=== PATIENT | female | born 1985 | race Caucasian/White ===

== ENCOUNTER 2017-08-21 13:19 | Emergency (ER) | payer OTHER, BC ==
[~2017-08-21] VITALS: Ht 162.6 cm; Wt 69.8 kg
[~2017-08-21 13:19] MED LIST: CIPR500 PO; CYCL10 PO; DOCU100 PO; FLUT44OIA; Flomax0.4 MG PO; Flonase 0.05% N16 GM; GABA100 PO; HYDACE5 PO; HYDMOR2; IBUP400 PO; IBUP800; IBUP800 PO; KETO10 PO; MEDR10 PO; MULVITMIND PO; Macrodantin50 MG PO; NAPR500 PO; ONDA8ODT MM; OXYB5ER PO; PANT20 PO; PENVK500 PO; PROGESTERONE PO; Percocet 5-3251 EACH PO; Prilosec Otc20 MG PO; RXONDA4ODT MM; SENN187 PO; TAMS.4ER PO; Zofran Odt4 MG SL
== END 2017-08-21 14:49 | disposition home or self-care (01) ==
LOC: ER 13:19
DX: M25.511 Pain in right shoulder (principal); K21.9 Gastro-esophageal reflux disease without esophagitis; Z91.040 Latex allergy status; Z88.8 Allergy status to other drugs, medicaments and biological substances; Z88.7 Allergy status to serum and vaccine; Z79.899 Other long term (current) drug therapy
CPT/HCPCS: 73050; 99283

== ENCOUNTER 2017-09-12 16:42 | Emergency (ER) | payer BC ==
[~2017-09-12] VITALS: Ht 162.6 cm; Wt 70.3 kg
[2017-09-12] MEDS ORDERED: HYDR1TAB94 PO (16:48)
== END 2017-09-12 17:35 | disposition home or self-care (01) ==
LOC: ER 16:42
DX: L23.7 Allergic contact dermatitis due to plants, except food (principal); K21.9 Gastro-esophageal reflux disease without esophagitis; Z91.040 Latex allergy status; Z88.8 Allergy status to other drugs, medicaments and biological substances; Z88.7 Allergy status to serum and vaccine
CPT/HCPCS: 96372; 99283; J1100

== ENCOUNTER → 2018-09-19 | Outpatient (CLI) | payer BC ==
[~2018-09-19] MED LIST changes: +HYDR1TAB94 PO
== END | disposition home or self-care (01) ==
LOC: LAB SHORT 11:24 → PLD 11:24
DX: D22.5 Melanocytic nevi of trunk (principal); D22.62 Melanocytic nevi of left upper limb, including shoulder
CPT/HCPCS: 88305

== ENCOUNTER → 2018-10-10 | Outpatient (CLI) | payer BC | END | disposition home or self-care (01) | LOC: PLD 07:44 → LAB SHORT 07:44 | DX: D48.5 Neoplasm of uncertain behavior of skin (principal) | CPT/HCPCS: 88305 ==

== ENCOUNTER 2019-04-03 09:47 | Day surgery (SDC) | payer BC ==
[~2019-04-03] VITALS: Ht 158 cm; Wt 82.6 kg
[~2019-04-03 09:47] MED LIST changes: +Ambien5 MG PO; +Omeprazole20 M1 PO; +Once Daily1 EACH PO
[2019-04-03] MEDS ORDERED: ONDA4ODT PO (10:01)
--- NOTE | 2019-04-03 10:19 | NUR ---
History, Chart, Medications and Allergies reviewed before start of procedure.Patient confirms NPO status and agrees with scheduled surgery. Lungs clear T/O to Auscultation.
--- NOTE | 2019-04-03 11:58 | NUR ---
Patient up to Ambulate independently. Gait steady. Discharge instructions reviewed with patient. Patient verbalizes understanding. Copy given to patient to take home. Patient States Post-Procedure ride home has been arranged. Discharged via wheelchair to private car for ride home.
== END 2019-04-03 12:00 | disposition home or self-care (01) ==
LOC: ORSCMMR 09:47
PROVIDERS: Internal Medicine Gastroenterology
PROC: 0DB68ZX Excision of Stomach, Via Natural or Artificial Opening Endoscopic, Diagnostic (ICD-10-PCS; principal; 2019-04-03 10:30)
DX: R10.13 Epigastric pain (principal); K29.70 Gastritis, unspecified, without bleeding; Z98.84 Bariatric surgery status
CPT/HCPCS: 88305; 88342; J0330; J1100; J2250; J2405; J2704; J3010; J7120

== ENCOUNTER 2023-05-03 08:58 | Day surgery (SDC) | payer BC ==
[~2023-05-03] VITALS: Ht 161 cm; Wt 95.2 kg
[~2023-05-03 08:58] MED LIST changes: +METPHE20 PO; +ONDA4ODT PO; +PROP10 PO; +Prozac20 MG PO
--- NOTE | 2023-05-03 09:34 | NUR ---
05/03/23 0934 Kathy Kline History, Chart, Medications and Allergies reviewed before start of procedure. 3-LEAD EKG REVIEWED WITH PHYSICIAN PRIOR TO START OF PROCEDURE. MONITOR INTACT WITH CONTINUOUS PULSE OXIMETRY, CONTINUOUS END TITAL CO2, AND INTERMITTENT BLOOD PRESSURE. O2 VIA N/C INTACT THROUGHOUT SEDATION/PROCEDURE. See Anesthesia record.
[2023-05-03 09:36] VITALS: BP 115/77
[2023-05-03 10:34] VITALS: BP 103/69
[2023-05-03 10:45] VITALS: BP 114/69
--- NOTE | 2023-05-03 11:01 | NUR ---
Discharge instructions reviewed with patient. Patient verbalizes understanding. Copy given to patient to take home. Patient States Post-Procedure ride home has been arranged.
== END 2023-05-03 11:21 | disposition home or self-care (01) ==
LOC: ORSCMMR 08:58 → ORD 10:00 → ORSCMMR 10:00
DX: K62.5 Hemorrhage of anus and rectum (principal); R10.30 Lower abdominal pain, unspecified; K21.9 Gastro-esophageal reflux disease without esophagitis; G47.33 Obstructive sleep apnea (adult) (pediatric); F41.9 Anxiety disorder, unspecified; Z68.37 Body mass index [BMI] 37.0-37.9, adult; Z79.899 Other long term (current) drug therapy
CPT/HCPCS: 88305; J2704; J7120